=== PATIENT | male | born 1980 | race Caucasian/White ===

== ENCOUNTER 2019-12-05 18:40 | Emergency (ER) | payer SELFPAY ==
[~2019-12-05] VITALS: Ht 190 cm; Wt 77.0 kg
--- NOTE | 2019-12-05 19:13 | ED Cough/URI ---
General Chief Complaint: Cough/Cold/Flu Symptoms Stated Complaint: COLD/FLU SYMPTOMS Source: patient Exam Limitations: no limitations History of Present Illness Date Seen by Provider: December 05, 2019 Time Seen by Provider: 18:52 Initial Comments The patient is a 39-year-old male who presents for evaluation of cough, shortness of breath, and nasal congestion over the last 2 and half to 3 weeks. He lives at home with his and children and none of them have similar symptoms. He does landscaping for a living and denies any sick contacts at work or any other sick contacts. He states he has been taking a lot of afkp-vlj-viccrje medications to help dry up his sinuses and has been using his nebulizer for shortness of breath and wheezing as he has a history of asthma. He denies any other past medical history aside from eczema. He states that for about a week during this time he did significantly lose his ability to taste which is certainly concerning for the coronavirus. He is saturating 99% on room air in the emergency department. He is a nonsmoker. He denies headache, neck pain or stiffness, sore throat, earache, chest pain, abdominal or back pain, hemoptysis, palpitations, or syncope. He is alert and oriented 4, calm, and appears to be in no distress at this time. He does not believe he has had a fever. Timing/Duration: other (2.5-3 weeks) Severity/Quality: dry cough Modifying Factors: Improves With Albuterol Nebulizer (helping) Associated Symptoms: cough, nasal congestion, nasal drainage, shortness of breath, wheezing Allergies and Home Medications Allergies Coded Allergies: Penicillins (Verified Allergy, Unknown, 12/05/19) Patient Home Medication List Home Medication List Reviewed: Yes Review of Systems Review of Systems Constitutional: no symptoms reported; No chills, No fever EENTM: nose congestion Respiratory: cough, short of breath, wheezing Cardiovascular: no symptoms reported Gastrointestinal: no symptoms reported Genitourinary: no symptoms reported Musculoskeletal: no symptoms reported Skin: no symptoms reported Psychiatric/Neurological: No Symptoms Reported Hematologic/Lymphatic: No Symptoms Reported Immunological/Allergic: no symptoms reported All Other Systems Reviewed Negative Unless Noted: Yes Past Vrvgsct-Zftmqu-Zqhyln Hx Past Med/Social Hx: Reviewed Nursing Past Med/Soc Hx Physical Exam Vital Signs - First Documented 12/05/19 18:54 Temp 37.0 Pulse 93 Resp 18 B/P (MAP) 174/82 (112) Pulse Ox 99 O2 Delivery Room Air Capillary Refill : Height: '" Weight: lbs. oz. kg; BMI Method: General Appearance: WD/WN, no apparent distress HEENT: PERRL/EOMI, normal ENT inspection, pharynx normal Neck: non-tender, full range of motion Respiratory: normal breath sounds, no respiratory distress, no accessory muscle use, wheezing (mild) Cardiovascular: regular rate, rhythm, no edema, no JVD Gastrointestinal: normal bowel sounds, non tender, soft, no organomegaly, no pulsatile mass Extremities: non-tender, normal inspection, no pedal edema Neurologic/Psychiatric: no motor/sensory deficits, alert, normal mood/affect, oriented x 3 Skin: normal color, warm/dry Progress/Results/Core Measures Suspected Sepsis SIRS Temperature: Pulse: Respiratory Rate: Blood Pressure / Mean: Results/Orders Lab Results Laboratory Tests Test 12/05/19 19:10 Range/Units Micro Results Microbiology 12/05/19 Influenza Types A,B Antigen (THOM) - Final, Complete My Orders Orders - NIALL BOJORQUEZ DO Influenza A And B Antigens (12/05/19 19:06) Coronavirus Sars-Cov-2 So 2018 (12/05/19 19:06) Chest 1 View Ap/Pa Only (12/05/19 19:06) Continuous Pulse Ox (12/05/19 19:06) Vital Signs/I&O 12/05/19 18:54 Temp 37.0 Pulse 93 Resp 18 B/P (MAP) 174/82 (112) Pulse Ox 99 O2 Delivery Room Air Capillary Refill : Progress Note : Progress Note @194 - Influenza and chest x-ray unremarkable. Coronavirus test has been obtained and sent out. Advised the patient to continue to self quarantine for the next 14 days. Return to the emergency department for difficulty breathing, new or worsening symptoms. Follow-up with your doctor in the next 2-3 days. Do not return to work until he noted the results of your coronavirus test. Diagnostic Imaging Diagonstic Imaging: Xray Plain Films/CT/US/NM/MRI: chest Comments [facility]. [place], [place] NAME: SUNITA CARIAS [facility] REC#: [id number] PT STATUS: REG ER : 1980 PHYSICIAN: NIALL BOJORQUEZ DO ADMIT DATE: 12/05/19/ER FS Draft Date of Exam:12/05/19 CHEST 1 VIEW AP/PA ONLY PATIENT HISTORY: Cough and shortness of air. TECHNIQUE: Single frontal view of the chest. COMPARISON: None FINDINGS: The lung volumes are normal. No focal consolidation is seen. No large pleural effusion or pneumothorax is seen. The cardiomediastinal silhouette is normal in size and contour. No acute osseous abnormality is seen. IMPRESSION: No acute pulmonary abnormality seen. Dictated on workstation # [id number] Dict: 12/05/191924 Trans: 12/05/191926 CASTRO [id number] Interpreted by: BRYAN FENG MD Electronically signed by: Departure Impression Primary Impression: Influenza-like symptoms Additional Impression: Cough Disposition: 01 HOME, SELF-CARE Condition: Stable Departure-Patient Inst. Decision time for Depature: 19:52 Referrals: [facility] [place] (PCP/Family) Primary Care Physician Patient Instructions: Cough, Adult (DC), Viral Syndrome (DC) Add. Discharge Instructions: Take the prescribed medicine instructed. Return to the emergency department im mediately for new or worsening symptoms. Follow-up with your doctor in the next 1-2 days. Scripts Prednisone (Prednisone) 20 Mg Tab 40 MG PO DAILY for 5 Days, #10 TAB 0 Refills Prov: NIALL BOJORQUEZ DO 12/05/19 Azithromycin (Azithromycin) 250 Mg Tablet 250 MG PO UD for 5 Days, #6 TAB TAKE 2 TABLETS ON DAY ONE THEN TAKE 1 TABLET DAILY FOR FOUR MORE DAYS Prov: NIALL BOJORQUEZ DO 12/05/19 Work/School Note: Work Release Form Date Seen in the Emergency Department: December 05, 2019 Return to Work: December 09, 2019 NIALL BOJORQUEZ DO December 05, 2019 19:13
--- NOTE | 2019-12-05 19:28 | Diagnostic Imaging Report ---
PATIENT HISTORY: Cough and shortness of air. TECHNIQUE: Single frontal view of the chest. COMPARISON: None FINDINGS: The lung volumes are normal. No focal consolidation is seen. No large pleural effusion or pneumothorax is seen. The cardiomediastinal silhouette is normal in size and contour. No acute osseous abnormality is seen. IMPRESSION: No acute pulmonary abnormality seen. Dictated by: Dictated on workstation # [id number]
[2019-12-05] MEDS ORDERED: PRD20T PO (19:54)
[2019-12-05] MEDS ORDERED: AZIT250T12 PO (19:54)
[2019-12-05 19:56] VITALS: BP 135/82
--- OUTSIDE RECORDS SUMMARY | 2019-12-05 20:06 | XMS REPORT ---
Author Author Amandeep Brooks Doctor Organization [facility] Address Unknown Phone Unavailable Care Team Providers Care Chain Link Fence Installer Name Role Phone Migration, Doctor Unavailable Unavailable PROBLEMS Type Condition ICD9-CM Code [id number] Code Onset Dates Condition S tatus SNOMED Code Problem Unspecified cardiac dysrhythmia 427.9 Active [id number] Problem Other premature beats 427.69 Active 04858202 Problem Unspecified pruritic disorder 698.9 Active 296154601 Problem Other psoriasis 696.1 Active 9014 002 Problem Other atopic dermatitis and related conditions 691.8 Active [id number] ALLERGIES No Information ENCOUNTERS Encounter Location Date Diagnosis [facility] [address] [id number] [address] [place] [phone] Oct, [facility] [address] [id number] [address] [place] [phone] Oct, [facility] [address] [id number] [address] [place] [phone] November, [facility] [address] [id number] [address] [place] [phone] November, [facility] [address] [facility] [id number] [address] [place] [phone] Oct, [facility] [address] [id number] [address] [place] [phone] Oct, [facility] [address] [id number] [address] [place] [address] Sep, [facility] [address] [id number] [address] [place] [phone] Aug, [facility] [address] [facility] [place] [id number] [address] [place] [phone] Jun, [facility] [address] [id number] [address] [place] [phone] Jun, [facility] [address] [facility] [place] [id number] [address] [place] [phone] Jun, [facility] [address] [facility] [place] [id number] [address] [place] [phone] Jun, [facility] [address] [facility] [place] [id number] [address] [place] [phone] Jun, IMMUNIZATIONS No Known Immunizations SOCIAL HISTORY Never Assessed REASON FOR VISIT EMR-[facility] PLAN OF CARE VITAL SIGNS MEDICATIONS Unknown Medications RESULTS No Results PROCEDURES No Known procedures INSTRUCTIONS MEDICATIONS ADMINISTERED No Known Medications
--- OUTSIDE RECORDS SUMMARY | 2019-12-05 20:06 | XMS REPORT ---
Author Author Amandeep Brooks Doctor Organization [facility] Address Unknown Phone Unavailable Care Team Providers Care Regulatory Affairs Director Name Role Phone Migration, Doctor Unavailable Unavailable PROBLEMS Type Condition ICD9-CM Code QMC65-WL Code Onset Dates Condition S tatus SNOMED Code Problem Unspecified cardiac dysrhythmia 427.9 Active 658529123 Problem Other premature beats 427.69 Active 49202929 Problem Unspecified pruritic disorder 698.9 Active 127065994 Problem Other psoriasis 696.1 Active 9014 002 Problem Other atopic dermatitis and related conditions 691.8 Active [id number] ALLERGIES No Information ENCOUNTERS Encounter Location Date Diagnosis [facility] [address] [phone] Oct, [facility] [address] [phone] Oct, [facility] [address] [phone] November, [facility] [address] [address] November, [facility] [address] [address] Oct, [facility] [address] [address] Oct, [facility] [address] [address] Sep, [facility] [address] [address] Aug, [facility] [address] [address] Jun, [facility] [address] [address] Jun, [facility] [address] [id number] [place] [address] Jun, [facility] [address] [id number] [place] [address] Jun, [facility] [address] [facility] [place] [address] Jun, IMMUNIZATIONS No Known Immunizations SOCIAL HISTORY Never Assessed REASON FOR VISIT PLAN OF CARE VITAL SIGNS MEDICATIONS Unknown Medications RESULTS No Results PROCEDURES No Known procedures INSTRUCTIONS MEDICATIONS ADMINISTERED No Known Medications
--- OUTSIDE RECORDS SUMMARY | 2019-12-05 20:06 | XMS REPORT ---
Author Author Amandeep Brooks Doctor Organization [facility] Address Unknown Phone Unavailable Care Team Providers Care Senior Software Project Manager Name Role Phone Migration, Doctor Unavailable Unavailable PROBLEMS Type Condition ICD9-CM Code GPJ86-AU Code Onset Dates Condition S tatus SNOMED Code Problem Unspecified cardiac dysrhythmia 427.9 Active 419076658 Problem Other premature beats 427.69 Active 36494668 Problem Unspecified pruritic disorder 698.9 Active 327250095 Problem Other psoriasis 696.1 Active 9014 002 Problem Other atopic dermatitis and related conditions 691.8 Active 841403590 ALLERGIES Substance Reaction Event Type Date Status Hydrocodone Unknown Non Drug Allergy Oct, Active ENCOUNTERS Encounter Location Date Diagnosis [facility] [address] [facility] [id number] [address] [place] [phone] Oct, [facility] [address] [facility] [id number] [address] [place] [phone] Oct, [facility] [address] [facility] [id number] [address] [place] [phone] November, [facility] [address] [facility] [id number] [address] [place] [phone] November, [facility] [address] [facility] [id number] [address] [place] [phone] Oct, [facility] [address] [facility] [id number] [address] [place] [phone] Oct, [facility] [address] [facility] [id number] [address] [place] [phone] Sep, [facility] [address] [facility] [id number] [address] [place] [phone] Aug, [facility] [address] [facility] [id number] [address] [place] [phone] Jun, [facility] [address] [facility] [id number] [address] [place] [phone] Jun, [facility] [address] [facility] [id number] [address] [place] [phone] Jun, [facility] [address] [facility] [id number] [address] [place] [phone] Jun, [facility] [address] [facility] [id number] [address] [place] [phone] Jun, IMMUNIZATIONS No Known Immunizations SOCIAL HISTORY Never Assessed REASON FOR VISIT EMR-[facility] PLAN OF CARE VITAL SIGNS MEDICATIONS Medication Instructions Dosage Frequency Start Date End Date Duration S tatus Protopic 0.03 % apply 1 Application a thin layer to the affected area(s) by Topical route 2 times per day ; rub in gently and completely for 30 day(s) Apply to facial area Aug, Active RESULTS No Results PROCEDURES No Known procedures INSTRUCTIONS MEDICATIONS ADMINISTERED No Known Medications
== END 2019-12-05 20:08 | disposition home or self-care (01) ==
LOC: EDUNIT# 18:40 → ER FS 18:42
DX: R05 Cough (principal); R06.02 Shortness of breath; R09.81 Nasal congestion; J45.909 Unspecified asthma, uncomplicated; Z88.0 Allergy status to penicillin; Z20.828 Contact with and (suspected) exposure to other viral communicable diseases
CPT/HCPCS: 71045; 87635; 87804

== ENCOUNTER 2021-04-09 18:03 | Emergency (ER) | payer SELFPAY ==
[~2021-04-09] VITALS: Ht 190 cm; Wt 88.0 kg
[~2021-04-09 18:03] MED LIST: AZIT250T12 PO; PRD20T PO
--- NOTE | 2021-04-09 18:07 | ED EENT ---
History of Present Illness General Chief Complaint: Dental Problems/Pain Stated Complaint: TOOTH PAIN History of Present Illness Date Seen by Provider: Apr 09, 2021 Time Seen by Provider: 18:06 Initial Comments 41-year-old male presents with left-sided dental pain and a "knot" patient reports that he has very poor teeth and is scheduled to see his dentist next week. Patient presents today because the pain is gotten unbearable over the last day. Is been worsening for about a week. Patient presents to the ER today because he states he has probably taken "40 ibuprofen" patient denies any fever chills nausea or vomiting Allergies and Home Medications Allergies Coded Allergies: Penicillins (Verified Allergy, Unknown, 12/05/19) Patient Home Medication List Home Medication List Reviewed: Yes Amoxicillin (Amoxicillin) 500 Mg Capsule, 500 MG PO TID Prescribed by: NIXON CARREON on 04/09/211815 Azithromycin (Azithromycin) 250 Mg Tablet, 250 MG PO UD Prescribed by: NIALL BOJORQUEZ on 12/05/191953 Hydrocodone/Acetaminophen (Hydrocodone-Acetamin 5-325 mg) 1 Each Tablet, 1 TAB PO Q12H PRN for PAIN-MODERATE (5-7) Prescribed by: NIXON CARREON on 04/09/211816 Prednisone (Prednisone) 20 Mg Tab, 40 MG PO DAILY Prescribed by: NIALL BOJORQUEZ on 12/05/191953 Review of Systems Review of Systems Constitutional: No chills, No fever Eyes: No Symptoms Reported Ears: No Symptoms Reported Nose: no symptoms reported Mouth: see HPI Throat: no symptoms reported Respiratory: no symptoms reported Cardiovascular: see HPI Gastrointestinal: no symptoms reported Musculoskeletal: no symptoms reported Neurological: Headache Past Nlpgoen-Mthnqe-Jbtpts Hx Past Medical History Surgeries: No Respiratory: Yes Asthma Cardiac: No Neurological: No Genitourinary: No Gastrointestinal: No Musculoskeletal: No Endocrine: No HEENT: No Cancer: No Psychosocial: No Integumentary: Yes Psoriasis Blood Disorders: No Physical Exam Vital Signs Vital Signs - First Documented 04/09/21 18:06 Temp 36.7 Pulse 87 Resp 14 B/P (MAP) 149/78 (101) Pulse Ox 100 O2 Delivery Room Air Height, Weight, BMI Height: '" Weight: lbs. oz. kg; 21.00 BMI Method: General Appearance: WD/WN, no apparent distress Mouth/Throat: dental tenderness, other (Multiple severe dental caries and tooth fractures on the left lower teeth) Cardiovascular: normal peripheral pulses, regular rate, rhythm Respiratory: chest non-tender, lungs clear, normal breath sounds Gastrointestinal: non tender, soft Neurologic/Psychiatric: alert, normal mood/affect, oriented x 3 Skin: tattoos/piercings Progress/Results/Core Measures Results/Orders My Orders Orders - NIXON CARREON DO Hydrocodone/Apap 5/325 Tablet (Lortab 5 (04/09/21 18:15) Ondansetron Oral Dissolve Tab (Zofran (04/09/21 18:18) Ondansetron Oral Dissolve Tab (Zofran (04/09/21 18:20) Progress Progress Note : Progress Note Patient with likely severe infected dental caries probably needing a root canal. Due to the excessive amount of ibuprofen I will provide him with a couple Lortab to help with breakthrough pain. He also be given amoxicillin which she has taken in the past. Patient stable discharged Departure Impression Primary Impression: Dental caries extending into dentine Disposition: 01 HOME, SELF-CARE Condition: Stable Departure-Patient Inst. Referrals: JERSON RYAN MD (PCP/Family) Primary Care Physician Patient Instructions: Tooth Decay, Adult (DC) Add. Discharge Instructions: Orajel as directed on package Please limit your ibuprofen intake 600 mg 4 times a day or 800 mg 3 times a day All discharge instructions reviewed with patient and/or family. Voiced understanding. Scripts Hydrocodone/Acetaminophen (Hydrocodone-Acetamin 5-325 mg) 1 Each Tablet 1 TAB PO Q12H PRN for PAIN-MODERATE (5-7), #10 TAB Prov: NIXON CARREON DO 04/09/21 Amoxicillin (Amoxicillin) 500 Mg Capsule 500 MG PO TID, #21 CAP 0 Refills Prov: MADELINE CARREONR L DO 04/09/21 MADELINE CARREONR Malgorzata DO Apr 09, 2021 18:07
[2021-04-09] MEDS ORDERED: HYDROcodone/APAP 5 MG/325 MG (LORTAB) TAB PO ONE (18:15)
[2021-04-09] MEDS ORDERED: ACHD5005 PO (18:16)
[2021-04-09] MEDS ORDERED: AMOX500C2 PO (18:16)
[2021-04-09 18:17] VITALS: BP 149/78
[2021-04-09] MEDS ORDERED: ONDANSETRON 4 MG (ZOFRAN) ORAL DISSOLVE TAB SL STA (18:18)
[2021-04-09] MEDS ORDERED: ONDANSETRON 4 MG (ZOFRAN) ORAL DISSOLVE TAB ONE (18:20)
== END 2021-04-09 18:29 | disposition home or self-care (01) ==
LOC: EDUNIT# 18:03 → ER FS 18:04
DX: K02.9 Dental caries, unspecified (principal); J45.909 Unspecified asthma, uncomplicated; Z79.52 Long term (current) use of systemic steroids
CPT/HCPCS: 99283

== ENCOUNTER 2022-04-10 23:15 | Emergency (ER) | payer OTHER ==
[~2022-04-10] VITALS: Ht 193 cm; Wt 93.8 kg
[~2022-04-10 23:15] MED LIST changes: +ACHD5005 PO; +AMOX500C2 PO
[2022-04-10] MEDS ORDERED: ONDANSETRON 4 MG (ZOFRAN) ORAL DISSOLVE TAB PO STA (23:40)
--- NOTE | 2022-04-10 23:43 | ED Integumentary General ---
General Chief Complaint: Bite-Animal/Human/Insect Stated Complaint: ANIMAL BITE Nursing Triage Note: Patient arrived via EMS for multiple dog bites. Patient states that his dog sleeps next to him on the floor by his bed. Patient fell out of bed and onto the dog. Dog bit the patient multiple times. Patient has a large laceration to the right forearm with scattered puncture wounds around it. Patient also has bites on his upper left arm with a laceration and puncture wounds on his lower left arm. Patient states that he is current on his immunizations. History of Present Illness Date Seen by Provider: Apr 10, 2022 Time Seen by Provider: 23:29 Initial Comments 42-year-old male is here with dog bites to bilateral upper arm and forearm a little while ago. Patient woke up in the dark and was reaching for something and fell out of bed on top of his sleeping dog. 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 The dog was an [place] bulldog and is fully vaccinated. Denies sensory loss. Patient is able to move his fingers hands arms without any issues. Allergies and Home Medications Allergies Coded Allergies: Penicillins (Verified Allergy, Unknown, 12/05/19) Patient Home Medication List Home Medication List Reviewed: Yes Amoxicillin (Amoxicillin) 500 Mg Capsule, 500 MG PO TID Prescribed by: NIXON CARREON on 04/09/211815 Azithromycin (Azithromycin) 250 Mg Tablet, 250 MG PO UD Prescribed by: NIALL BOJORQUEZ on 12/05/191953 Hydrocodone/Acetaminophen (Hydrocodone-Acetamin 5-325 mg) 1 Each Tablet, 1 TAB PO Q12H PRN for PAIN-MODERATE (5-7) Prescribed by: NIXON CARREON on 04/09/211816 Prednisone (Prednisone) 20 Mg Tab, 40 MG PO DAILY Prescribed by: NIALL BOJORQUEZ on 12/05/191953 Sulfamethoxazole/Trimethoprim (Bactrim Ds Tablet) 1 Each Tablet, 1 EACH PO BID Prescribed by: KACIE VIDAL MD on 04/11/22207 Tramadol HCl (Tramadol HCl) 50 Mg Tablet, 50 MG PO Q8H Prescribed by: KACIE VIDAL MD on 04/11/22207 Review of Systems Review of Systems Constitutional: no symptoms reported EENTM: no symptoms reported Respiratory: no symptoms reported Cardiovascular: no symptoms reported Gastrointestinal: no symptoms reported Genitourinary: no symptoms reported Musculoskeletal: no symptoms reported Skin: lesions Psychiatric/Neurological: No Symptoms Reported Endocrine: No Symptoms Reported Hematologic/Lymphatic: No Symptoms Reported Past Oociktb-Vrtjdi-Vkkomg Hx Patient Social History Tobacco Use?: No Substance use?: No Alcohol Use?: No Pt feels they are or have been: No Immunizations Up To Date COVID19 Vaccine Air Tucker: Moderna Past Medical History Surgeries: No Respiratory: Yes Asthma Cardiac: No Neurological: No Genitourinary: No Gastrointestinal: No Musculoskeletal: No Endocrine: No HEENT: No Cancer: No Psychosocial: No Integumentary: Yes Psoriasis Blood Disorders: No Physical Exam Vital Signs Vital Signs - First Documented 04/10/22 23:15 Temp 37.0 Pulse 62 Resp 16 B/P (MAP) 157/98 (117) Pulse Ox 97 O2 Delivery Room Air Capillary Refill : Less Than 3 Seconds General Appearance: WD/WN, mild distress HEENT: PERRL/EOMI Neck: full range of motion Extremities: normal range of motion, inflammation, other (upper extremities" ROM unlimited, NV bundle intact) Neurologic/Psychiatric: alert, normal mood/affect, oriented x 3 Skin: other (1. RIGHT UPPER EXTREMITY:) Procedures/Interventions Wound Location: Upper Extremities Other Wound Location 1. RIGHT UPPER EXTREMITY: (A) EXTENSOR SURFACE: of FOREARM - Lac 1: 2cm long , 3 interrupted sutures placed - Lac 2: 0.5cm long, 1 interrupted suture placed - Lac 3: 0.5cm long, 1 interrupted suture placed (B) FLEXOR SURFACE: FOREARM: - Lac 1: 5cm long, 10 interrupted sutures placed - Lac 2: 0.5cm long, 1 interrupted suture placed 2. LEFT UPPER EXTREMITY: (A) EXTENSOR SURFACE OF UPPER ARM: - Directly above elbow: Lac 1: 5cm long, double flap: 9 interrupted sutures placed Lac 2: 0.5cm long, 1 interrupted suture placed (B) FLEXOR SURFACE OF FOREARM: - Inferior to elbow joint: 3cm long, 4 interrupted sutures placed - Middle 1/3 of forearm: 4cm lon interrupted sutures placed Irrigated w/ Saline (ccs): 85 Suture: Ethlion Suture Size: 4-0 Sterile Dressing Applied?: Yes Progress/Results/Core Measures Results/Orders My Orders Orders - KACIE VIDAL MD Ondansetron Oral Dissolve Tab (Zofran (04/10/22 23:40) Tramadol Tablet (Ultram Tablet) (04/10/22 23:45) Sulfamethoxazole/Trimet Ds Tab (Bactrim (04/10/22 23:45) Forearm 2 View Right (04/10/22 23:49) Ketorolac Injection (Toradol Injection) (04/11/22 02:00) Bacitracin Ointment (Bacitracin Ointment (04/11/22 01:56) Medications Given in ED Current Medications Medications Dose Ordered Sig/Maria R Route Start Time Stop Time Status Last Admin Dose Admin Ketorolac Tromethamine 30 mg ONCE ONCE IM 04/11/22 02:00 04/11/22 02:01 UNV 04/11/22 02:06 30 MG Tramadol HCl 50 mg ONCE ONCE PO 04/10/22 23:45 04/10/22 23:46 DC 04/10/22 23:46 50 MG Trimethoprim/ Sulfamethoxazole 1 ea ONCE ONCE PO 04/10/22 23:45 04/10/22 23:46 DC 04/10/22 23:46 1 EA Vital Signs/I&O 04/10/22 23:15 Temp 37.0 Pulse 62 Resp 16 B/P (MAP) 157/98 (117) Pulse Ox 97 O2 Delivery Room Air Blood Pressure Mean: 117 Progress Progress Note : Progress Note 1. MULTIPLE DOG BITES: - Multiple stitches placed, with gaps for drainage see note - XR FOREARM: no fracture - Pt's dog: bulldog: fully vaccinated dog - Tdap up to date - Bactrim DS for 7 days bid, with first tab in ER - Tramadol 50mg STAT, then Toradol 30mg im prior to discharge - Prescription for Tramadol for severe pain, and Tylenol for mild to moderate pain - Ice/ elevation/ sling - Daily wound care instructions - Follow up for wound check in 3 to 5 days - Return for suture removal in 10 days - see discharge instructions -The patient was seen in the ED, and treated appropriately to presentation at a specific point in time. Patient is informed that there is a possibility that disease and illness can evolve and change in acuity rapidly or slowly after patient is discharged from the ER. Precautionary advice given to the patient for immediate return to ER if symptoms worsen or do not resolve, and to seek emergency care sooner rather than later. Pt also advised on the importance of PCP follow up and compliance with management and follow up plan with PCP and/or specialist, as this is part of the management plan. Pt verbally expressed understanding. 1. RIGHT UPPER EXTREMITY: (A) EXTENSOR SURFACE: of FOREARM - Lac 1: 2cm long , 3 interrupted sutures placed - Lac 2: 0.5cm long, 1 interrupted suture placed - Lac 3: 0.5cm long, 1 interrupted suture placed (B) FLEXOR SURFACE: FOREARM: - Lac 1: 5cm long, 10 interrupted sutures placed - Lac 2: 0.5cm long, 1 interrupted suture placed 2. LEFT UPPER EXTREMITY: (A) EXTENSOR SURFACE OF UPPER ARM: - Directly above elbow: Lac 1: 5cm long, double flap: 9 interrupted sutures placed Lac 2: 0.5cm long, 1 interrupted suture placed (B) FLEXOR SURFACE OF FOREARM: - Inferior to elbow joint: 3cm long, 4 interrupted sutures placed - Middle 1/3 of forearm: 4cm lon interrupted sutures placed In addition to this, multiple superficial puncture bites which were not sutured Departure Impression Primary Impression: Dog bite of multiple sites Disposition: HOME, SELF-CARE Condition: Improved Departure-Patient Inst. Referrals: JERSON RYAN MD (PCP/Family) Primary Care Physician RYANNE FLORIAN MD, JUSTIN S MD Patient Instructions: Animal Bites ED, Wound Care (DC) Add. Discharge Instructions: - Bactrim DS for 7 days bid, with first tab in ER - Prescription for Tramadol for severe pain, and Tylenol for mild to moderate pain - Ice/ elevation/ sling - Daily wound care instructions - Follow up for wound check in 3 to 5 days - Return for suture removal in 10 days - Any signs of infection and/or fever return to ER - Follow up with surgery clinic for wound care if needed: Dr Florian's office - Follow up with Ortho clinic if needed: Dr Barnett's office All discharge instructions reviewed with patient and/or family. Voiced understanding. Scripts Tramadol HCl (Tramadol HCl) 50 Mg Tablet 50 MG PO Q8H for 5 Days, #12 TAB Prov: KACIE VIDAL MD 04/11/22 Sulfamethoxazole/Trimethoprim (Bactrim Ds Tablet) 1 Each Tablet 1 EACH PO BID for 7 Days, #14 TAB Prov: KACIE VIDAL MD 04/11/22 KACIE VIDAL MD Apr 10, 2022 23:43
[2022-04-10] MEDS ORDERED: TRIM/SULFAMETH 160/800 (SEPTRA DS) TAB PO ONE (23:45)
[2022-04-11] MEDS ORDERED: BACITRACIN OINTMENT 28 GM TUBE TOP STA (01:56)
[2022-04-11] MEDS ORDERED: KETOROLAC 30 MG/ML VIAL IM ONE (02:00)
[2022-04-11] MEDS ORDERED: KETOROLAC 30 MG/ML VIAL ONE (02:02)
[2022-04-11] MEDS ORDERED: BACITRACIN OINTMENT 28 GM TUBE ONE (02:02)
[2022-04-11] MEDS ORDERED: TRAM50TA3 PO (02:08)
[2022-04-11] MEDS ORDERED: SULF1TAB38 PO (02:08)
[2022-04-11 02:23] VITALS: BP 136/84
[2022-04-11] MEDS ORDERED: DOXY-311 PO (08:04)
--- NOTE | 2022-04-11 08:07 | Diagnostic Imaging Report ---
FOREARM 2 VIEW RIGHT INDICATION: Right forearm injury, dog bite. COMPARISON: None available. TECHNIQUE: 2 views of right forearm FINDINGS: There is a 1.5 cm laceration located in the anterior and radial aspect of the mid forearm. No radiopaque foreign body is present. There are few foci of soft tissue gas around the area of laceration. Soft tissue swelling is also present in this region. No acute fracture. Alignment is normal of the wrist and elbow. IMPRESSION: 1. No fracture or radiopaque foreign body. 2. Dermal laceration with a small amount of soft tissue gas. Dictated by: Dictated on workstation # [id number]
== END 2022-04-11 02:23 | disposition home or self-care (01) ==
LOC: EDUNIT# 23:15 → ER FS 23:17
DX: S51.852A Open bite of left forearm, initial encounter (principal); S51.851A Open bite of right forearm, initial encounter; S41.152A Open bite of left upper arm, initial encounter; Z88.0 Allergy status to penicillin; W54.0XXA Bitten by dog, initial encounter
CPT/HCPCS: 12002; 73090